=== PATIENT | male | born 1945 | race Caucasian/White ===

== ENCOUNTER 2016-06-20 11:57 | Inpatient (IN) | payer MEDICARE ==
--- NOTE | 2016-06-20 12:37 | EDM.PDOC ---
ED HPI GENERAL MEDICAL PROBLEM - General Chief Complaint: Neuro Symptoms/Deficits Stated Complaint: CAME FROM CLINIC Time Seen by Provider: 06/20/16 12:00 Source of Information: Reports: Family History Limitations: Reports: Altered mental status, Physical impairment - History of Present Illness INITIAL COMMENTS - FREE TEXT/NARRATIVE: 71-year-old male who has had a very rapid progression of worsening medical problems including metastatic lung cancer, renal failure, and has been recently on dialysis 3 times a week who missed his dialysis appointment on Thursday after he answered the phone and said he "wasn't up for it". Last night he developed some difficulty speaking and overnight developed left-sided weakness which is worse with almost total paralysis on the left side today. He doesn't communicate well but does answer questions, such as a "back hurts", but doesn't focus his eyes or track well. No nausea or vomiting. His accompanies him and wants no resuscitation, she's undecided whether she wants to continue with dialysis depending on what we find here in the emergency room. Onset: unknown/unsure Severity: severe Associated Symptoms: Reports: confusion, malaise, weakness. Denies: fever/ chills, shortness of breath Generalized Pain Score (Numeric/FACES): 5 - Related Data Allergies Allergy/AdvReac Type Severity Reaction Status Date / Time No Known Allergies Allergy Verified 06/20/16 12:32 Home Meds: Home Meds Aspirin 325 mg PO DAILY 02/07/14 [History] Rosuvastatin Calcium [Crestor] 10 mg PO DAILY 02/07/14 [History] Fenofibric Acid (Choline) [Fenofibric Acid] 45 mg PO DAILY 06/03/16 [History] Omeprazole 20 mg PO DAILY 06/03/16 [History] oxyCODONE HCl [Oxycodone HCl] 5 - 10 mg PO Q4H PRN 06/03/16 [History] Hydrocortisone 10 mg PO BID 06/20/16 [History] Past Medical History Cardiovascular History: Reports: Hypertension, Other (see below) Other Cardiovascular History: peripheral artery disease Respiratory History: Reports: Other (see below) Other Respiratory History: emphasema Gastrointestinal History: Reports: Jaundice Other Gastrointestinal History: liver mass Genitourinary History: Reports: Renal disease Musculoskeletal History: Reports: Osteoarthritis Social & Family History - Tobacco Use Smoking Status *Q: Former Smoker Years of Tobacco use: 48 Second Hand Smoke Exposure: Yes - Caffeine Use Caffeine Use: Reports: None - Alcohol Use Days Per Week of Alcohol Use: 7 Number of Drinks Per Day: 3 Total Drinks Per Week: 21 - Recreational Drug Use Recreational Drug Use: No ED ROS GENERAL - Review of Systems Review Of Systems: See Below Constitutional: Denies: fever, chills Respiratory: Reports: shortness of breath. Denies: pleuritic chest pain Cardiovascular: Denies: Chest pain GI/Abdominal: Reports: Other (Patient hasn't eaten well for the past 24 hours). Denies: Abdominal pain : Reports: other (Receives dialysis 3 times a week) Skin: Reports: other (Patient has diffuse grayness of the skin, some scattered bruising is present) Neurological: Reports: change in speech (Dysphagia) ED EXAM, GENERAL - Physical Exam Exam: See Below Exam Limited By: Physical impairment General Appearance: no apparent distress, other (Patient is not distress but he looks hypoxic, dehydrated and very ill) Eye Exam: bilateral eye: other (Slight disconjugate gaze with no effective tracking) Respiratory/Chest: no respiratory distress, rales (Anterior and posterior basilar rales are present) Cardiovascular: regular rate, rhythm GI/Abdominal: non tender Extremities: redness (He is hyperemic skin of the left lower extremity, 2+ pitting edema of the left leg 1+ of the right) Neurological: inattentive, confused, slow to respond, other (I cannot get the patient to actively display any motor activity of the left arm or left leg) Psychiatric: depressed mood, flat affect Skin Exam: Warm, Pallor, Other (Erythema of the left lower extremity, scattered bruises are present on the upper extremities) Course - Vital Signs Last Recorded V/S: Last Vital Signs Temp 99.1 F 06/21/16 07:27 Pulse 114 H 06/21/16 07:27 Resp 16 06/21/16 07:27 BP 93/53 L 06/21/16 07:27 Pulse Ox 96 06/21/16 07:27 - Orders/Labs/Meds Orders: Medication Orders Acetaminophen (Tylenol) 650 mg PO Q4H PRN PRN Reason: Pain (Mild 1-3)/fever Acetaminophen (Tylenol) 650 mg RECTAL Q4H PRN PRN Reason: Mild pain/fever Docusate Sodium (Colace) 100 mg PO BID PRN PRN Reason: Constipation Hydrocortisone (Cortef) 10 mg PO BID BRITNEY Last Admin: 06/20/16 22:53 Dose: Not Given Admin: 06/20/16 16:38 Dose: 10 mg Lorazepam (Ativan Oral Concentrate 1mg/0.5 Ml U/D) 0.5 - 1 mg PO Q2H PRN PRN Reason: Anxiety, Agitation, or Nausea Magnesium Hydroxide (Milk Of Magnesia) 30 ml PO Q12H PRN PRN Reason: Constipation Morphine Sulfate (Morphine 10 Mg/0.5 Ml Oral Syringe) 5 - 10 mg SL Q1H PRN PRN Reason: Pain Last Admin: 06/21/16 09:48 Dose: 5 mg Admin: 06/21/16 07:49 Dose: 5 mg Admin: 06/20/16 20:57 Dose: 5 mg Admin: 06/20/16 16:36 Dose: 5 mg Ondansetron HCl (Zofran Odt) 4 mg PO Q6H PRN PRN Reason: Nausea able to take PO Polyethylene Glycol (Miralax) 17 gm PO DAILY PRN PRN Reason: Constipation Labs: Laboratory Tests 06/20/16 06/20/16 Range/Units 12:59 12:59 WBC 12.6 H (4.5-11.0) K/uL RBC 3.10 L (4.30-5.90) M/uL Hgb 9.3 L D (12.0-15.0) g/dL Hct 28.7 L (40.0-54.0) % MCV 93 (80-98) fL MCH 30 (27-31) pg MCHC 32 (32-36) % Plt Count 89 L (150-400) K/uL Neut % (Auto) 83 H (36-66) % Lymph % (Auto) 8 L (24-44) % [place] % (Auto) 6 (2-6) % Eos % (Auto) 3 (2-4) % Baso % (Auto) 0 (0-1) % Sodium 141 (140-148) mmol/L Potassium 3.6 (3.6-5.2) mmol/L Chloride 99 L (100-108) mmol/L Carbon Dioxide 25 (21-32) mmol/L Anion Gap 20.6 H (5.0-14.0) mmol/L BUN 38 H (7-18) mg/dL Creatinine 4.9 H* (0.8-1.3) mg/dL Est Cr Clr Drug Dosing 13.63 mL/min Estimated GFR (MDRD) 12 L (>60) Glucose 80 (74-106) mg/dL Calcium 8.1 L (8.5-10.1) mg/dL Total Bilirubin 0.9 D (0.2-1.0) mg/dL AST 1044 H (15-37) U/L ALT 353 H (12-78) U/L Alkaline Phosphatase 129 H (46-116) U/L Total Protein 5.8 L (6.4-8.2) g/dL Albumin 1.9 L (3.4-5.0) g/dL Globulin 3.9 H (2.3-3.5) g/dL Albumin/Globulin Ratio 0.5 L (1.2-2.2) Meds: Medications Generic Name Dose Route Start Last Admin Trade Name Freq PRN Reason Stop Dose Admin Acetaminophen 650 mg 06/20/16 15:29 Tylenol PO Q4H PRN Pain (Mild 1-3)/fever Acetaminophen 650 mg 06/20/16 15:29 Tylenol RECTAL Q4H PRN Mild pain/fever Docusate Sodium 100 mg 06/20/16 15:29 Colace PO BID PRN Constipation Hydrocortisone 10 mg 06/20/16 15:29 06/20/16 22:53 Cortef PO Not Given BID BRITNEY Lorazepam 0.5 - 1 mg 06/20/16 15:29 Ativan Oral Concentrate 1mg/0.5 Ml U/D PO Q2H PRN Anxiety, Agitation, or Nausea Magnesium Hydroxide 30 ml 06/20/16 15:29 Milk Of Magnesia PO Q12H PRN Constipation Morphine Sulfate 5 - 10 mg 06/20/16 15:29 06/21/16 09:48 Morphine 10 Mg/0.5 Ml Oral Syringe SL 5 mg Q1H PRN Administration Pain Ondansetron HCl 4 mg 06/20/16 15:29 Zofran Odt PO Q6H PRN Nausea able to take PO Polyethylene Glycol 17 gm 06/20/16 15:29 Miralax PO DAILY PRN Constipation - Re-Assessments/Exams Free Text/Narrative Re-Assessment/Exam: 06/20/16 12:[address] will be obtained without contrast, along with a CMP CBC. The patient has missed his last dialysis run so his labs will likely be very abnormal, and I already cautioned the that this may be a very serious or even terminal event. 06/21/16 09:58 CT confirmed a right middle cerebellar infarct, creatinine is 4.1. I asked Dr. Guerrier of the hospitalist service to discuss admission with the family for comfort cares. Departure - Departure Time of Disposition: 16:02 Disposition: Admitted As Inpatient 65 Condition: serious Clinical Impression: Acute renal failure Qualifiers: Acute renal failure type: unspecified Qualified Code(s): N17.9 - Acute kidney failure, unspecified Cerebrovascular accident (CVA) Qualifiers: CVA mechanism: thrombosis Precerebral and cerebral artery: middle cerebral artery Laterality of affected vessel: right Qualified Code(s): I63.311 - Cerebral infarction due to thrombosis of right middle cerebral artery
--- NOTE | 2016-06-20 13:03 | CT ---
Head wo Cont HISTORY: Left-sided paralysis. COMPARISON: 10/27/2016. TECHNIQUE: Noncontrast enhanced axial cuts were obtained of the brain. Total DLP: 749. FINDINGS: There has been interval development of focal edema involving the cerebral cortices adjacen t to the right sylvian fissure. The finding is consistent with subacute stroke involving the right M CA distribution. There is no evidence for hemorrhage. There is no significant mass effect or shift o f midline. The remaining portions of brain are stable. Impression: 1. Subacute stroke right MCA distribution. No hemorrhage or significant mass effect. Discussed with ED physician at time of dictation.
--- NOTE | 2016-06-20 14:17 | PCM.HP ---
H&P History of Present Illness - General Date of Service: 06/20/16 Admit Problem/Dx: Admission Diagnosis/Problem Admission Diagnosis/Problem Pain Source of Information: Patient, Family, Provider, RN notes reviewed History Limitations: Reports: Other (Speech impairment secondary to CVA) - History of Present Illness Initial Comments - Free Text/Narative: Mr. Morales is a 71-year-old gentleman who is admitted through the emergency department for Paliative Care and comfort measures only. He has been recently diagnosed with metastatic non-small cell lung cancer, with known metastatic disease to the liver. Also his developed renal failure and his and has required recent hemodialysis 3 times weekly. He was not feeling well so he skipped his dialysis 2 days ago in today as well. Last night developed significant weakness on his left side and this morning was found to be hemiplegic on the left. CT scan of the head obtained in the emergency department shows a subacute CVA in the right middle cerebral artery region. Given his multiple severe problems patient and family have decided not to pursue any further aggressive interventions. He is having significant pain related to his cancer and will be admitted for pain management, with probable discharge to hospice after the weekend if he survives. Generalized Pain Score (Numeric/FACES): 5 - Related Data Allergies/Adverse Reactions: Allergies Allergy/AdvReac Type Severity Reaction Status Date / Time No Known Allergies Allergy Verified 06/20/16 12:32 Home Medications: Home Meds Aspirin 325 mg PO DAILY 02/07/14 [History] Rosuvastatin Calcium [Crestor] 10 mg PO DAILY 02/07/14 [History] Fenofibric Acid (Choline) [Fenofibric Acid] 45 mg PO DAILY 06/03/16 [History] Omeprazole 20 mg PO DAILY 06/03/16 [History] oxyCODONE HCl [Oxycodone HCl] 5 - 10 mg PO Q4H PRN 06/03/16 [History] Hydrocortisone 10 mg PO BID 06/20/16 [History] Past Medical History Cardiovascular History: Reports: Hypertension, Other (see below) Other Cardiovascular History: peripheral artery disease Respiratory History: Reports: Other (see below) Other Respiratory History: emphasema Gastrointestinal History: Reports: Jaundice Other Gastrointestinal History: liver mass Genitourinary History: Reports: Renal disease Other Genitourinary History: on hemodialysis 3x per week Musculoskeletal History: Reports: Osteoarthritis Oncologic (Cancer) History: Reports: Lung, Metastatic Social & Family History - Tobacco Use Smoking Status *Q: Former Smoker Years of Tobacco use: 48 Tobacco Use Comment: many year history of heavy smoking. Second Hand Smoke Exposure: Yes - Caffeine Use Caffeine Use: Reports: None - Alcohol Use Days Per Week of Alcohol Use: 7 Number of Drinks Per Day: 3 Total Drinks Per Week: 21 - Recreational Drug Use Recreational Drug Use: No H&P Review of Systems - Review of Systems: Review Of Systems: Unable To Obtain General: Reports: ROS unobtainable (Marked speech difficulty secondary to CVA) Exam - Exam Exam: See Below - Vital Signs Vital Signs: Last Vital Signs Temp 98.6 F 06/20/16 12:31 Pulse 107 H 06/20/16 13:41 Resp 16 06/20/16 12:31 BP 94/54 L 06/20/16 13:41 Pulse Ox 94 L 06/20/16 13:41 Weight: 171 lb - Exam General: alert, cooperative, moderate distress HEENT: PERRLA, EACs clear, Hearing intact, Mucosa moist & pink, Nares patent, Normal nasal septum, Posterior pharynx clear, Other (Very poor dentition) Neck: supple, trachea midline, +2 carotid pulse wo bruit Lungs: Decreased breath sounds, Wheezing. No: Crackles, Rales, Rhonchi, Rub, Stridor Cardiovascular: regular rate, regular rhythm, normal S1, normal S2. No: systolic murmur, diastolic murmur Abdomen: normal bowel sounds, soft, organomegaly (Liver is enlarged and tender) , tenderness. No: peritoneal signs, distention, guarding, rigidity, rebound Extremities: 3, normal inspection, 10 Skin: warm, dry, intact Neuro Extensive - Motor, Sensory, Reflexes: motor/sensory deficits, dysarthria, hemeplagia (L). No: CN II-XII intact - Patient Data Lab Results last 24 hrs: Laboratory Results - last 24 hr 06/20/16 06/20/16 Range/Units 12:59 12:59 WBC 12.6 H (4.5-11.0) K/uL RBC 3.10 L (4.30-5.90) M/uL Hgb 9.3 L D (12.0-15.0) g/dL Hct 28.7 L (40.0-54.0) % MCV 93 (80-98) fL MCH 30 (27-31) pg MCHC 32 (32-36) % Plt Count 89 L (150-400) K/uL Neut % (Auto) 83 H (36-66) % Lymph % (Auto) 8 L (24-44) % [place] % (Auto) 6 (2-6) % Eos % (Auto) 3 (2-4) % Baso % (Auto) 0 (0-1) % Sodium 141 (140-148) mmol/L Potassium 3.6 (3.6-5.2) mmol/L Chloride 99 L (100-108) mmol/L Carbon Dioxide 25 (21-32) mmol/L Anion Gap 20.6 H (5.0-14.0) mmol/L BUN 38 H (7-18) mg/dL Creatinine 4.9 H* (0.8-1.3) mg/dL Est Cr Clr Drug Dosing 13.63 mL/min Estimated GFR (MDRD) 12 L (>60) Glucose 80 (74-106) mg/dL Calcium 8.1 L (8.5-10.1) mg/dL Total Bilirubin 0.9 D (0.2-1.0) mg/dL AST 1044 H (15-37) U/L ALT 353 H (12-78) U/L Alkaline Phosphatase 129 H (46-116) U/L Total Protein 5.8 L (6.4-8.2) g/dL Albumin 1.9 L (3.4-5.0) g/dL Globulin 3.9 H (2.3-3.5) g/dL Albumin/Globulin Ratio 0.5 L (1.2-2.2) Result Diagrams: 06/20/16 12:59 06/20/16 12:59 *Q Meaningful Use (ADM) - VTE *Q VTE Criteria *Q: VTE Mechanical Contraindications *Q: Bilateral PAD or PVD VTE Pharmacological Contraindications *Q: Cerebral Hemorrhag Infarc - VTE Risk Assess *Q Each Risk Factor Represents 1 Point: Abnormal Pulmonary Function (COPD) Total Score 1 Point Risk Factors: 1 Each Risk Factor Represents 2 Points: Age 60 - 74 Years Total Score 2 Point Risk Factors: 2 Each Risk Factor Represents 3 Points: Present Cancer or Chemotherapy Total Score 3 Point Risk Factors: 3 Each Risk Factor Represents 5 Points: None Total Score 5 Point Risk Factors: 0 Venous Thromboembolism Risk Factor Score *Q: 6 - Stroke *Q Stroke Criteria *Q: - AMI *Q AMI Criteria *Q: Problem List Initiated/Reviewed/Updated: Yes Orders Last 24hrs: Active Orders 24 hr Category Date Time Status Patient Status Manage Transfer [TRANSFER] Routine ADT 06/20/16 14:05 Ordered Resuscitation Status Routine Resus Stat 06/20/16 14:07 Ordered Assessment/Plan Comment:: ASSESSMENT AND PLAN PALLIATIVE CARE-he will be admitted for pain control and end-of-life care. Patient and family do not want further aggressive evaluation or interventions. He realizes that with his multiple severe medical problems and recent CVA that his life expectancy is very short, he would like to be kept comfortable. -Morphine as needed for pain -Lorazepam as needed for anxiety, agitation, or nausea -Zofran as needed for nausea METASTATIC NON-SMALL CELL CANCER OF THE LUNG-with known metastatic disease to the liver CHRONIC KIDNEY DISEASE STAGE V REQUIRING DIALYSIS SUBACUTE RIGHT CVA WITH LEFT HEMIPARESIS COPD PERIPHERAL ARTERIAL DISEASE MAINTENANCE ISSUES -DVT prophylaxis; not indicated -GI prophylaxis; not indicated -Howard catheter; not indicated -Nutrition; soft diet as tolerated -Nicotine dependence; not required CODE STATUS-DNR/DNI COMFORT CARES ONLY ADMISSION STATUS-patient will be admitted to inpatient status, expect at least a 2 night hospital stay for evaluation and management of problems as outlined above. At the time of this admission I do not reasonably expected evaluation and management of this problem will require more than a 96 hour hospital stay. DISPOSITION-anticipate discharge to home with hospice care PRIMARY PROVIDER-Dr. Marino
[2016-06-20] MEDS ORDERED: Polyethylene Glycol 3350 Powder 17 GM Packet PO PRN (15:29)
[2016-06-20] MEDS ORDERED: Magnesium Hydroxide 400 MG/5 ML Susp 30 ML Cup PO PRN (15:29)
[2016-06-20] MEDS ORDERED: Acetaminophen 650 MG Supp RECTAL PRN (15:29)
[2016-06-20] MEDS ORDERED: Docusate Sodium 100 MG Cap PO PRN (15:29)
[2016-06-20] MEDS ORDERED: Ondansetron 4 MG Tab.DIS PO PRN (15:29)
[2016-06-20] MEDS ORDERED: Acetaminophen 325 MG Tab PO PRN (15:29)
[2016-06-20] MEDS ORDERED: LORazepam ORAL Concentrate 1MG/0.5ML U/D PO PRN (15:29)
[2016-06-20] MEDS: Morphine 10 MG/0.5 ML Oral Syringe SL PRN ×2 (16:36→20:57)
[2016-06-20] MEDS: Hydrocortisone 10 MG Tab PO SCH ×2 (16:38→22:53)
[2016-06-21 07:37] VITALS: BP 93/53
[2016-06-21] MEDS: Morphine 10 MG/0.5 ML Oral Syringe SL PRN ×2 (07:49→09:48)
[2016-06-21] MEDS: Hydrocortisone 10 MG Tab PO SCH (10:35)
--- NOTE | 2016-06-21 10:48 | PCM.PN ---
- General Info Date of Service: 06/21/16 Functional Status: Reports: pain controlled - Review of Systems General: Reports: weakness Systems Review Comment:: Mr. Morales was admitted yesterday for comfort cares and management of pain. He has a known history of metastatic lung cancer as well as chronic kidney disease stage requiring dialysis. On evaluation yesterday was found to have had an acute right CVA with left hemiparesis. He's decided not to pursue further aggressive interventions or evaluation. Since admission he has remained fairly stable and comfortable with current regimen of pain medication and anxiolytic therapy. - Patient Data Vitals - most recent: Last Vital Signs Temp 99.1 F 06/21/16 07:27 Pulse 114 H 06/21/16 07:27 Resp 16 06/21/16 07:27 BP 93/53 L 06/21/16 07:27 Pulse Ox 96 06/21/16 07:27 Weight - most recent: 167 lb I&O - last 24 hours: Intake & Output 06/20/16 06/21/16 06/21/16 22:59 06:59 14:59 Output Total 150 25 Balance -150 -25 Med Orders - Current: Current Medications Acetaminophen (Tylenol) 650 mg PO Q4H PRN PRN Reason: Pain (Mild 1-3)/fever Acetaminophen (Tylenol) 650 mg RECTAL Q4H PRN PRN Reason: Mild pain/fever Docusate Sodium (Colace) 100 mg PO BID PRN PRN Reason: Constipation Hydrocortisone (Cortef) 10 mg PO BID BRITNEY Last Admin: 06/21/16 10:35 Dose: 10 mg Lorazepam (Ativan Oral Concentrate 1mg/0.5 Ml U/D) 0.5 - 1 mg PO Q2H PRN PRN Reason: Anxiety, Agitation, or Nausea Magnesium Hydroxide (Milk Of Magnesia) 30 ml PO Q12H PRN PRN Reason: Constipation Morphine Sulfate (Morphine 10 Mg/0.5 Ml Oral Syringe) 5 - 10 mg SL Q1H PRN PRN Reason: Pain Last Admin: 06/21/16 09:48 Dose: 5 mg Ondansetron HCl (Zofran Odt) 4 mg PO Q6H PRN PRN Reason: Nausea able to take PO Polyethylene Glycol (Miralax) 17 gm PO DAILY PRN PRN Reason: Constipation - Exam General: alert, cooperative, no acute distress Lungs: Clear to auscultation, Normal respiratory effort Cardiovascular: regular rate, regular rhythm, no murmurs Abdomen: bowel sounds present, soft, no tenderness, no distension Extremities: edema Skin: warm, dry, intact Neurological: No: normal speech, strength equal bilateral, sensation intact, cranial nerves intact - Problem List Review Problem List Initiated/Reviewed/Updated: Yes - My Orders Last 24 Hours: My Active Orders 06/20/16 14:07 Resuscitation Status Routine 06/20/16 15:29 Patient Status [ADT] Routine Oxygen Therapy [RC] PRN Up With Assistance [RC] ASDIRECTED VTE/DVT Education [RC] Per Unit Routine Vital Signs [RC] Q4H Acetaminophen [Tylenol] 650 mg PO Q4H PRN Acetaminophen [Tylenol] 650 mg RECTAL Q4H PRN Docusate Sodium [Colace] 100 mg PO BID PRN LORazepam [Ativan ORAL Concentrate 1MG/0.5 ML U/D] 0.5 - 1 mg PO Q2H PRN Magnesium Hydroxide [Milk of Magnesia] 30 ml PO Q12H PRN Morphine [Morphine 10 MG/0.5 ML Oral Syringe] 5 - 10 mg SL Q1H PRN Ondansetron [Zofran ODT] 4 mg PO Q6H PRN Polyethylene Glycol 3350 [MiraLAX] 17 gm PO DAILY PRN VTE Mechanical Contraindications [AST] Per Unit Routine VTE Pharmacological Contraindications [AST] Per Unit Routine 06/20/16 Lunch Mechanical Soft Diet [DIET] - Plan Plan:: ASSESSMENT AND PLAN PALLIATIVE CARE-stable thus far with good pain control -Morphine as needed for pain -Lorazepam as needed for anxiety, agitation, or nausea -Zofran as needed for nausea METASTATIC NON-SMALL CELL CANCER OF THE LUNG-with known metastatic disease to the liver CHRONIC KIDNEY DISEASE STAGE V REQUIRING DIALYSIS SUBACUTE RIGHT CVA WITH LEFT HEMIPARESIS COPD PERIPHERAL ARTERIAL DISEASE MAINTENANCE ISSUES -DVT prophylaxis; not indicated -GI prophylaxis; not indicated -Howard catheter; not indicated -Nutrition; soft diet as tolerated -Nicotine dependence; not required CODE STATUS-DNR/DNI COMFORT CARES ONLY ADMISSION STATUS-patient will be admitted to inpatient status, expect at least a 2 night hospital stay for evaluation and management of problems as outlined above. At the time of this admission I do not reasonably expected evaluation and management of this problem will require more than a 96 hour hospital stay. DISPOSITION-anticipate discharge to home with hospice care PRIMARY PROVIDER-Dr. Marino
[2016-06-21] MEDS ORDERED: diphenhydrAMINE 25 MG Cap PO PRN (11:02)
[2016-06-21] MEDS ORDERED: Triamcinolone Acetonide 0.5% Crm 15 GM Tube TOP SCH (11:15)
[2016-06-21] MEDS ORDERED: Betamethasone Dipropionate 0.05% Crm 15 GM Tube TOP SCH (11:30)
[2016-06-21] MEDS ORDERED: Triamcinolone Acetonide 0.1% Crm 15 GM Tube TOP SCH (11:30)
--- NOTE | 2016-06-21 13:32 | PCM.DCSUM1 ---
Discharge Summary - Hospital Course Brief History: Mr. Morales is a 71-year-old gentleman with a history of end- stage renal failure requiring hemodialysis and known metastatic non-small cell cancer of lung, who was admitted through the emergency department with an acute CVA and left hemiplegia. - Discharge Data Discharge Date: 06/21/16 Discharge Disposition: DC/Tfer to Hospice - Home 49 Condition: Poor - Discharge Diagnosis/Problem(s) (1) CKD (chronic kidney disease) stage V requiring chronic dialysis SNOMED Code(s): 441232266 ICD Code: N18.6 - END STAGE RENAL DISEASE; Z99.2 - DEPENDENCE ON RENAL DIALYSIS Status: Acute Current Visit: Yes (2) Non-small cell carcinoma of lung metastatic to abdomen SNOMED Code(s): 832577829, 993971403 ICD Code: C34.90 - MALIGNANT NEOPLASM OF UNSP PART OF UNSP BRONCHUS OR LUNG; C79.89 - SECONDARY MALIGNANT NEOPLASM OF OTHER SPECIFIED SITES Status: Acute Current Visit: Yes (3) Cerebrovascular accident (CVA) SNOMED Code(s): 634738633 ICD Code: I63.9 - CEREBRAL INFARCTION, UNSPECIFIED Status: Acute Current Visit: Yes Qualifiers: CVA mechanism: thrombosis Precerebral and cerebral artery: middle cerebral artery Laterality of affected vessel: right Qualified Code(s): I63.311 - Cerebral infarction due to thrombosis of right middle cerebral artery (4) Palliative care patient SNOMED Code(s): 620021353 ICD Code: Z51.5 - ENCOUNTER FOR PALLIATIVE CARE Status: Acute Current Visit: Yes - Patient Summary/Data Hospital Course: Mr. Morales has unfortunately been diagnosed with non-small cell lung cancer metastatic to the liver over the past few months. In addition his developed progressive kidney failure to the point where he has required hemodialysis. The morning of admission was noted to have a new left hemiplegia and on evaluation in the emergency department CT scan documented a subacute CVA of the right cerebral hemisphere. Discussion was held with patient and family in the emergency department concerning his wishes for ongoing care and management. Patient and family did not want further aggressive evaluation or intervention. His opted for Palliative care with comfort measures and was admitted to the hospital for pain management. He was treated for comfort during hospitalization with morphine and lorazepam as needed. He was seen and evaluated today by the hospice team and decision has been made by the patient and family, that he would like to be discharged home with hospice care. Hospice admission will occur after discharge, activity will be as tolerated and he will resume his usual diet as tolerated. - Patient Instructions Diet: Usual Diet as Tolerated Activity: As Tolerated Other/Special Instructions: Admitted to hospice after discharge. - Discharge Plan Prescriptions/Med Rec: Betamethasone Dipropionate [Diprolene AF 0.05% Crm] 30 gm TOP BID #1 tube LORazepam [Ativan ORAL Concentrate 1MG/0.5 ML U/D] 0.5 - 1 mg PO Q2H PRN #30 ml PRN Reason: Anxiety Morphine [Morphine 10 MG/0.5 ML Oral Syringe] 5 - 10 mg SL Q1H PRN #60 ml PRN Reason: Pain diphenhydrAMINE [Benadryl] 25 mg PO Q4H PRN #30 cap PRN Reason: Itching Home Medications: Home Meds Omeprazole 20 mg PO DAILY 06/03/16 [History] Hydrocortisone 10 mg PO BID 06/20/16 [History] Betamethasone Dipropionate [Diprolene AF 0.05% Crm] 30 gm TOP BID #1 tube [Rx] LORazepam [Ativan ORAL Concentrate 1MG/0.5 ML U/D] 0.5 - 1 mg PO Q2H PRN #30 ml 06/21/16 [Rx] Morphine [Morphine 10 MG/0.5 ML Oral Syringe] 5 - 10 mg SL Q1H PRN #60 ml [Rx] diphenhydrAMINE [Benadryl] 25 mg PO Q4H PRN #30 cap 06/21/16 [Rx] Forms: ED Department Discharge Referrals: Felipe Marino MD [Primary Care Provider] - - Patient Data Vitals - Most Recent: Last Vital Signs Temp 99.1 F 06/21/16 07:27 Pulse 114 H 06/21/16 07:27 Resp 16 06/21/16 07:27 BP 93/53 L 06/21/16 07:27 Pulse Ox 96 06/21/16 07:27 Weight - Most Recent: 167 lb I&O - Last 24 hours: Intake & Output 06/20/16 06/21/16 06/21/16 22:59 06:59 14:59 Output Total 150 25 Balance -150 -25 Med Orders - Current: Current Medications Acetaminophen (Tylenol) 650 mg PO Q4H PRN PRN Reason: Pain (Mild 1-3)/fever Acetaminophen (Tylenol) 650 mg RECTAL Q4H PRN PRN Reason: Mild pain/fever Betamethasone Dipropionate (Diprolene Af 0.05% Crm) 0 gm TOP BID [facility] Last Admin: 06/21/16 13:10 Dose: 1 applicful Diphenhydramine HCl (Benadryl) 25 mg PO Q4H PRN PRN Reason: Itching Docusate Sodium (Colace) 100 mg PO BID PRN PRN Reason: Constipation Hydrocortisone (Cortef) 10 mg PO BID [facility] Last Admin: 06/21/16 10:35 Dose: 10 mg Lorazepam (Ativan Oral Concentrate 1mg/0.5 Ml U/D) 0.5 - 1 mg PO Q2H PRN PRN Reason: Anxiety, Agitation, or Nausea Magnesium Hydroxide (Milk Of Magnesia) 30 ml PO Q12H PRN PRN Reason: Constipation Morphine Sulfate (Morphine 10 Mg/0.5 Ml Oral Syringe) 5 - 10 mg SL Q1H PRN PRN Reason: Pain Last Admin: 06/21/16 09:48 Dose: 5 mg Ondansetron HCl (Zofran Odt) 4 mg PO Q6H PRN PRN Reason: Nausea able to take PO Polyethylene Glycol (Miralax) 17 gm PO DAILY PRN PRN Reason: Constipation *Q Meaningful Use (DIS) - VTE *Q VTE Criteria *Q: VTE Mechanical Contraindications *Q: Bilateral PAD or PVD VTE Pharmacological Contraindications *Q: Cerebral Hemorrhag Infarc - Stroke *Q Stroke Criteria *Q: - AMI *Q AMI Criteria *Q:
== END 2016-06-21 15:43 | disposition hospice, home (50) | DRG 64 ==
LOC: JP.ED 11:57 → JP.MS 14:05
PROVIDERS: ADMIT Hospitalist; ATTEND Hospitalist
DX: I63.311 Cerebral infarction due to thrombosis of right middle cerebral artery (principal); N18.6 End stage renal disease; N17.9 Acute kidney failure, unspecified; C34.90 Malignant neoplasm of unspecified part of unspecified bronchus or lung; C78.7 Secondary malignant neoplasm of liver and intrahepatic bile duct; I69.951 Hemiplegia and hemiparesis following unspecified cerebrovascular disease affecting right dominant side; I12.0 Hypertensive chronic kidney disease with stage 5 chronic kidney disease or end stage renal disease; Z99.2 Dependence on renal dialysis; Z66 Do not resuscitate; Z51.5 Encounter for palliative care; Z87.891 Personal history of nicotine dependence; J44.9 Chronic obstructive pulmonary disease, unspecified; Z79.82 Long term (current) use of aspirin; I73.9 Peripheral vascular disease, unspecified
CPT/HCPCS: 36415; 70450; 70450-26; 80053; 85025; 99284; 99285-25; A9270-GY